=== PATIENT | female | born 1995 | race Caucasian/White ===

== ENCOUNTER 2017-04-22 07:42 | Emergency (ER) | payer OTHER ==
[2017-04-22 07:55] VITALS: TEMP 97.7
--- NOTE | 2017-04-22 08:08 | EDPHY ---
H & P Time Seen by Provider: 04/22/17 07:51 HPI/ROS: This patient stepped awkwardly while at home the last night inverting her ankle and hearing a pop with immediate 7/10 lateral pain. She did fall but denies any other injuries from the incident. She reports that the pain is less intense this morning at baseline-now less than 5/10 but she has difficulty bearing weight because of the sharp pain associated with attempts at weight-bearing. She came in with crutches this morning was driven here by her father by private vehicle for evaluation. She took ibuprofen last night but has not had any medications this morning for her discomfort. ROS: Neuro: No numbness or tingling Cardiovascular: No pallor or discoloration the affected lower extremity. Musculoskeletal: No other extremity injuries from the fall. Integumentary: No lacerations or abrasions from this incident. 5 point ROS is otherwise negative. Past Medical/Surgical History: Otherwise healthy Social History: College student attending [employer] Smoking Status: Never smoked Physical Exam: Physical Exam Vital signs are normal. General: No acute distress HEENT: Atraumatic. Eyes: Pupils equal and react to light. Extraocular motions are intact. Lungs: No respiratory distress. Cardiac: Brisk capillary refill is intact throughout. Pulses are 2+ and symmetric in the affected extremity. Skin: No rash or pallor. Extremities: Atraumatic normal except for right ankle Right ankle: Patient has swelling and tenderness to the lateral malleolus and posterior to the lateral malleolus on the right ankle. No significant laxity on anterior drawer. No Achilles or medial ankle tenderness. No foot swelling or tenderness. Neuro: Alert and oriented x3 with no sensorimotor deficits. Initial differential diagnosis: Right ankle sprain versus fracture Constitutional: Initial Vital Signs Temperature (C) 36.5 C 04/22/17 07:53 Heart Rate 62 04/22/17 07:53 Respiratory Rate 16 04/22/17 07:53 Blood Pressure 122/50 H 04/22/17 07:53 O2 Sat (%) 98 04/22/17 07:53 O2 Delivery Mode Room Air Allergies/Adverse Reactions: No Known Allergies Allergy (Unverified 08/01/11 21:06) Home Medications: Medication Instructions Recorded Miscellaneous Medical Supply [NO 1 ea MISC AD 08/01/11 HOME MEDS] MDM/Departure - MDM Imaging Results: Imaging Impressions Ankle X-Ray 04/22/17 07:56 Impression: 1. No acute fracture or derangement ankle mortise. 2. Suspect small osteochondral defect talar dome. If pain persists, recommend MRI of the ankle to optimally characterize. Three-view Ankle x-ray: Negative for fracture by my interpretation. She does have a small lucency in the talar dome-chondral defect. Imaging: I viewed and interpreted images myself ED Course/Re-evaluation: Patient is placed in a Velcro stirrup splint by our margarita Rodriguez with my supervision and is neurovascularly intact post splint application. I counseled the patient regarding ankle sprain and demonstrated some stretching and strengthening exercises. Discussion: Grade 1 or 2 ankle sprain without evidence of neurovascular compromise or other complications. - Depart Disposition: Home, Routine, Self-Care Clinical Impression: Ankle sprain Qualifiers: Encounter type: initial encounter Involved ligament of ankle: anterior talofibular ligament Laterality: right Qualified Code(s): S93.491A - Sprain of other ligament of right ankle, initial encounter Condition: Good Instructions: Ankle Sprain (ED) Additional Instructions: Diagnosis: Ankle sprain Plan: Ibuprofen-400 600 mg per 6 hours as needed for pain and swelling. Ice 20 minutes at a time 3 times a day or more for the next few days. Stirrup splint whenever you're up and about until your symptoms resolve. Tylenol in addition if needed for pain. Use crutches initially until it no longer hurts to bear weight. Then start your ankle rehabilitation exercises to include "the alphabet", gentle ankle stretches in the 4 directions, and then manual resistance strengthening exercises in the 4 directions daily for the next several months. Call the orthopedic M.D. listed below to arrange a followup appointment if you' re not improving with the treatment plan over the next week or so. Referrals: KEYSHA JOSE [Other] - As per Instructions
[2017-04-22 08:58] VITALS: BP 122/62; PULSE 75; RESP 85; O2SAT 18
== END 2017-04-22 08:57 | disposition home or self-care (01) ==
LOC: CED 07:42
DX: S93.491A Sprain of other ligament of right ankle, initial encounter (principal); W18.39XA Other fall on same level, initial encounter; Y92.009 Unspecified place in unspecified non-institutional (private) residence as the place of occurrence of the external cause
CPT/HCPCS: 73610-PO; L4350

== ENCOUNTER → 2017-12-04 | Outpatient (CLI) | payer OTHER | LOC: BMCIMAGING 08:43 | PROVIDERS: ATTEND Podiatrist Foot & Ankle Surgery | DX: S93.491D Sprain of other ligament of right ankle, subsequent encounter (principal); R93.7 Abnormal findings on diagnostic imaging of other parts of musculoskeletal system ==